=== PATIENT | male | born 1950 | race Caucasian/White ===

== ENCOUNTER → 2025-09-18 | Outpatient (REF) | payer MEDICARE | LOC: DX 11:21 | PROVIDERS: ATTEND Student in an Organized Health Care Education/Training Program | DX: Z45.2 Encounter for adjustment and management of vascular access device (principal); Z79.2 Long term (current) use of antibiotics; M86.9 Osteomyelitis, unspecified; E11.8 Type 2 diabetes mellitus with unspecified complications | CPT/HCPCS: 36569; 71045 ==